=== PATIENT | female | born 1995 | race Two or more races ===

== ENCOUNTER 2019-07-18 10:41 | Emergency (ER) | payer MEDICAID ==
[~2019-07-18] VITALS: Ht 170.2 cm; Wt 66.1 kg
[2019-07-18 10:43] VITALS: BP 134/78
[2019-07-18] MEDS ORDERED: IBUPROFEN 600 MG TABLET ONE (11:19)
--- NOTE | 2019-07-18 11:23 | NUR ---
PT WITH C/O SORE THROAT AND FEVER BEGINNING YESTERDAY. PT STATES FEVER WAS 102.4 THIS AM. PT DID NOT TAKE ANY OTC MEDICATION PRIOR TO ARRIVAL.
[2019-07-18 11:30] LABS: HCG UR SG 1.028 (1.003-1.030); MICROSCOPIC NOT IND
[2019-07-18] MEDS ORDERED: IBUPROFEN 200 MG TABLET PO ONE (11:30)
[2019-07-18 11:39] LABS: CULTURE INDICATED? NO
[2019-07-18 11:46] LABS: RAPID INFLUENZA A Negative (Negative); RAPID INFLUENZA B Negative (Negative)
== END 2019-07-18 13:57 | disposition home or self-care (01) ==
LOC: ED 13:14
DX: J06.9 Acute upper respiratory infection, unspecified (principal); R51 Headache; R00.0 Tachycardia, unspecified
CPT/HCPCS: 71046; 81003; 81025; 87081; 87400; 87880; 99284